=== PATIENT | male | born 1955 | race Caucasian/White ===

== ENCOUNTER 2016-08-14 12:46 | Emergency (ER) ==
[2016-08-14 13:00] VITALS: BP 137/85; TEMP 96.5; BMI 28.3
[2016-08-14] MEDS ORDERED: SOLU-MEDROL 125 MG IM STA (13:14)
--- NOTE | 2016-08-14 13:20 | ED.PDOC ---
General ED Provider: Dr. LEELEE SEXTON JR Chief Complaint: Cough Stated Complaint: HAS HAD ONE ROUND OF TREATMENT OF ANTIBIOTICS (LEVAQUIN) BUT STILL HAVING PROBLEMS...COUGHS UNTIL HE THROWS UP AT TIMES. SEEMS WORSE AT NIGHT...CHEST HURTS AT TIMES AND COUGHING INCREASES AT NIGHT. [ End ]3 weeks 96.5 67 20 98% 137/85 09/09 Time Seen by Physician: 13:16 Mode of Arrival: Walk-In Information Source: Patient Exam Limitations: No limitations Nursing and Triage Documentation Reviewed and Agree: No Review of Systems - Review Of Systems Constitutional: Reports: Malaise Eyes: Reports: No symptoms Ears, Nose, Mouth, Throat: Reports: Throat pain Respiratory: Reports: Cough Cardiac: Reports: No symptoms GI: Reports: No symptoms : Reports: No symptoms Musculoskeletal: Reports: No symptoms Skin: Reports: No symptoms Neurological: Reports: No symptoms Endocrine: Reports: No symptoms Hematologic/Lymphatic: Reports: No symptoms All Other Systems: Other Past Medical History - Past Medical History Endocrine: Reports: None Cardiovascular: Reports: Hypertension Respiratory: Reports: None Hematological: Reports: None Gastrointestinal: Reports: None Genitourinary: Reports: None Neuro/Psych: Reports: None Musculoskeletal: Reports: None Cancer: Reports: None - Surgical History General Surgical History: Reports: Orthopedic (knee replcement) - Family History Family History: Reports: Unknown - Social History Smoking Status: Never smoker Hx Substance Use: No Alcohol Screening: None - Immunizations Tetanus Shot up to Date: Yes Physical Exam - Physical Exam Appearance: Well-appearing Ill-appearing: Mild Pain Distress: Mild Eyes: JORDAN, EOMI, Conjunctiva clear ENT: Ears normal (tms retracted), Nose normal, Oropharynx normal Neck: Supple Respiratory: Airway patent, Breath sounds clear, Breath sounds equal, Respirations nonlabored Cardiovascular: RRR, Pulses normal, No rub, No murmur GI/: Soft, Nontender, No masses, Bowel sounds normal, No Organomegaly Musculoskeletal: Normal strength, ROM intact, No edema, No calf tenderness Skin: Warm, Dry, Normal color Neurological: Sensation intact, Motor intact, Reflexes intact, Cranial nerves intact, Alert, Oriented Psychiatric: Affect appropriate, Mood appropriate Critical Care Note - Critical Care Note Total Time (mins): 0 Course - Course Orders, Labs, Meds: Orders Category Date Time Status SPUTUM CULTURE Stat LAB 08/14/16 13:20 Uncollected Methylprednisolone Sod Succ/Pf [Solu-Medrol 125 mg] MEDS 08/14/16 13:14 Discontinued 125 mg IM ONCE STA CHEST, 2 VIEWS PA & LAT Stat RADS 08/14/16 13:14 Completed Medications Discontinued Medications Generic Name Dose Route Start Last Admin Trade Name Freq PRN Reason Stop Dose Admin Methylprednisolone Sodium Succinate 125 mg 08/14/16 13:14 Solu-Medrol 125 Mg IM 08/14/16 13:15 ONCE STA Vital Signs: Temp Pulse Resp BP Pulse Ox 08/14/16 12:46 96.5 F L 67 20 137/85 98 Departure - Departure Time of Disposition: 13:22 Disposition: HOME SELF-CARE Discharge Problem: Bronchitis Instructions: Acute Bronchitis (ED) Condition: Good Pt referred to PMD for follow-up: Yes Additional Instructions: antihistamine daily for three days then as needed cough medication may use robitussin DM or histussin(not together) solumedrol given in ER increase clear liquids return if fever over 101.0 if culture positive call PMD about antibiotic Prescriptions: Guaifenesin/Hydrocodone [Flowtuss 2.5-200 mg/5 ml Soln] 5 ml PO TID PRN #240 solution PRN Reason: Cough Allergies/Adverse Reactions: Allergies No Known Allergies Allergy (Unverified 08/14/16 12:56) Home Medications: Ambulatory Orders Guaifenesin/Hydrocodone [Flowtuss 2.5-200 mg/5 ml Soln] 5 ml PO TID PRN #240 solution 08/14/16 Nebivolol HCl [Bystolic] 1 tab PO DAILY 08/14/16 Disposition Discussed With: Patient, Family
--- NOTE | 2016-08-14 13:33 | DI ---
EXAM: Chest two views HISTORY: Cough COMPARISON: 08/08/2011 TECHNIQUE: Two views of the chest were performed FINDINGS: The lungs are clear. There is no pleural effusion or pneumothorax. The heart is normal in size. The mediastinal contour is normal. There are no acute abnormalities of the bones. IMPRESSION: No acute cardiopulmonary process.
== END 2016-08-14 14:04 | disposition home or self-care (01) ==
LOC: ED 12:46
DX: J20.9 Acute bronchitis, unspecified (principal)
CPT/HCPCS: 96372; 99282

== ENCOUNTER 2018-01-07 10:41 | Emergency (ER) ==
[2018-01-07] MEDS ORDERED: LIDOCAINE HCL 1% SDV SUBCUT STA (10:50)
[2018-01-07 10:56] VITALS: BP 127/78; TEMP 97.5; BMI 25.3
--- NOTE | 2018-01-07 11:15 | ED.PDOC ---
General ED Provider: Dr. NASEEM BRAUN-ER Chief Complaint: Laceration Stated Complaint: i cut my finger on a sharp edge of a weight machine at [facility] Time Seen by Physician: 11:00 Mode of Arrival: Walk-In Information Source: Patient Exam Limitations: No limitations Primary Care Provider: EMMANUEL HAYS Nursing and Triage Documentation Reviewed and Agree: Yes Does patient meet sepsis criteria?: No System Inflammatory Response Syndrome: Not Applicable Sepsis Protocol: For patient's 13 years and over: Temp is 96.8 and below OR 101 and greater Pulse >90 BPM Resp >20/minute Acutely Altered Mental Status Are patient's symptoms suggestive of a new infection, such as: -Pneumonia -Skin, Soft Tissue -Endocarditis -UTI -Bone, Joint Infection -Implantable Device -Acute Abdominal Infection -Wound Infection -Meningitis -Blood Stream Catheter Infection -Unknown Skin Complaint Exam - Laceration/Abrasion/Hand Complaint/Exam Location of Injury: Left, Digit #1 Mechanism of Injury: Laceration Onset/Duration: 1 hr Symptoms Are: Still present Initial Severity: Mild Current Severity: Mild Aggravating: Movement Alleviating: Compression Associated Signs and Symptoms: Denies: Fever, Chills, Erythema, Numbness, Tingling Related History: Reports: Right hand dominant Differential Diagnoses: Laceration Review of Systems - Review Of Systems Constitutional: Reports: No symptoms Eyes: Reports: No symptoms Ears, Nose, Mouth, Throat: Reports: No symptoms Respiratory: Reports: No symptoms Cardiac: Reports: No symptoms GI: Reports: No symptoms : Reports: No symptoms Musculoskeletal: Reports: No symptoms Skin: Reports: No symptoms Neurological: Reports: No symptoms Endocrine: Reports: No symptoms Hematologic/Lymphatic: Reports: No symptoms All Other Systems: Reviewed and Negative Past Medical History - Past Medical History Previously Healthy: No Endocrine: Reports: None Cardiovascular: Reports: Hypertension Respiratory: Reports: None Hematological: Reports: None Gastrointestinal: Reports: None Genitourinary: Reports: None Neuro/Psych: Reports: None Musculoskeletal: Reports: None Cancer: Reports: None - Surgical History General Surgical History: Reports: Orthopedic (knee replcement) - Family History Family History: Reports: Unknown - Social History Smoking Status: Never smoker Hx Substance Use: No Alcohol Screening: None - Immunizations Tetanus Shot up to Date: (last year) Physical Exam - Physical Exam Appearance: Well-appearing, No pain distress, Well-nourished Eyes: JORDAN, EOMI, Conjunctiva clear ENT: Ears normal, Nose normal, Oropharynx normal Neck: Supple Respiratory: Airway patent, Breath sounds clear, Breath sounds equal, Respirations nonlabored Cardiovascular: RRR GI/: Soft Musculoskeletal: Normal strength, ROM intact, No edema, No calf tenderness Skin: Warm, Dry, Normal color Neurological: Sensation intact, Motor intact, Reflexes intact, Cranial nerves intact, Alert, Oriented Psychiatric: Affect appropriate, Mood appropriate Procedures - Laceration/Wound Repair No standard instances Wound Description: Linear Wound Length (cm): 2cm left finger Wound Irrigated: No Wound Prep: Hibiclens Anesthesia: Lidocaine Wound Repaired With: Sutures Number of Sutures: 4 Sterile Dressing Applied?: Yes Splint Applied?: No Sling Applied?: No Critical Care Note - Critical Care Note Total Time (mins): 0 Course - Course Orders, Labs, Meds: Orders Category Date Time Status Lidocaine HCl/Pf [Lidocaine HCl 1% Sdv] MEDS 01/07/18 10:50 Discontinued 5 ml SUBCUT ONCE STA Medications Discontinued Medications Generic Name Dose Route Start Last Admin Trade Name Edmund PRN Reason Stop Dose Admin Lidocaine HCl 5 ml 01/07/18 10:50 01/07/18 11:08 Lidocaine Hcl 1% Sdv SUBCUT 01/07/18 10:51 5 ml ONCE STA Administration Vital Signs: Temp Pulse Resp BP Pulse Ox 01/07/18 10:52 97.5 F L 48 L 16 127/78 97 Departure - Departure Time of Disposition: 11:16 Disposition: HOME SELF-CARE Discharge Problem: Laceration - injury Instructions: Finger Laceration (ED) Condition: Good Pt referred to PMD for follow-up: Yes IPMP verified?: No Additional Instructions: routine suture care--sutures out in 7 days--return if any signs of infection Allergies/Adverse Reactions: Allergies No Known Allergies Allergy (Verified 01/07/18 10:57) Home Medications: Ambulatory Orders Nebivolol HCl [Bystolic] 1 tab PO DAILY 08/14/16 Metformin HCl 500 mg PO DAILY 01/07/18 Tadalafil [Cialis] 5 mg PO DAILY 01/07/18 Disposition Discussed With: Patient
== END 2018-01-07 11:20 | disposition home or self-care (01) ==
LOC: ED 10:41
DX: S61.211A Laceration without foreign body of left index finger without damage to nail, initial encounter (principal); W45.8XXA Other foreign body or object entering through skin, initial encounter
CPT/HCPCS: 99283